=== PATIENT | female | born 1940 | race Caucasian/White ===

== ENCOUNTER 2017-05-06 10:17 | Emergency (ER) | payer BC, MEDICARE ==
[~2017-05-06] VITALS: Ht 154.9 cm; Wt 59.0 kg
[2017-05-06 10:19] VITALS: BP 159/74; PULSE 88; RESP 14; TEMP 97.8; O2SAT 96
[2017-05-06] MEDS ORDERED: SODIUM CHLOR 0.9% 1000 ML INJ 1,000 ML IV SCH (11:18)
[2017-05-06] MEDS ORDERED: PANT20TA2 PO (11:23)
[2017-05-06] MEDS ORDERED: LEVO125T50 PO (11:23)
[2017-05-06] MEDS ORDERED: ONDANSETRON HCL 4 MG/2 ML VIAL IVP ONE (11:30)
[2017-05-06] MEDS ORDERED: SODIUM CHLORIDE 0.9% FLUSH 10 ML FLUSH IV FLUSH PRN (11:30)
[2017-05-06] MEDS ORDERED: TRAZ1TAB14 PO (11:36)
[2017-05-06] MEDS ORDERED: ANTI-DEPRESSANT (11:36)
[2017-05-06] MEDS ORDERED: PLAQ200T PO (11:36)
--- NOTE | 2017-05-06 11:40 | PD ---
HPI Chief Complaint: GI Complaint Time Seen by Provider: 11:05 Travel History International Travel<30 days: No Contact w/Intl Traveler<30days: No Traveled to known affect area: No History of Present Illness HPI The patient has a 77-year-old female presenting to the emergency department with complaint of epigastric abdominal pain that does not radiate with gradual onset 1 week prior to arrival. The pain has been cramping. It is accompanied by nausea an vomiting with any intake of food. There has been hematemesis last night, no hematochezia, or melena of stool. There has been no urinary tract symptoms. Patient has been tolerating oral fluid intake. She states that last night the blood in her emesis appeared clumpy. She reports a history of constipation but states she had a normal bowel movement last night which was "sticky". Patient is not taking any blood thinners or aspirin. She states that she had a colonoscopy 3-4 years ago was told she had colitis. Patient denies sick contacts, her 's present and has been eating the same foods without any difficulty. Patient denies any cold or flulike symptoms. Past medical history significant for hypothyroidism, Raynaud's disease, depression, insomnia, GERD. PFSH Past Medical History Depression: Yes GERD: Yes Hypertension: Yes Insomnia: Yes Medical other: Yes (Raynaud's, colitis) Thyroid Disease: Yes Social History Alcohol Use: No Tobacco Use: No Substance Use: No Allergies-Medications (Allergen,Severity, Reaction): Coded Allergies: No Known Allergies (Unverified , 05/06/17) Reported Meds & Prescriptions Reported Meds & Active Scripts Active Reported [Anti-Depressant] Trazodone (Trazodone HCl) 150 Mg Tablet 150 Mg PO HS Plaquenil (Hydroxychloroquine Sulfate) 200 Mg Tab 200 Mg PO BID Take with food Levoxyl (Levothyroxine Sodium) 125 Mcg Tab 125 Mcg PO DAILY Pantoprazole (Pantoprazole Sodium) 20 Mg Tab 20 Mg PO DAILY Review of Systems Except as stated in HPI: all other systems reviewed are Neg General / Constitutional: No: Fever, Chills HENT: No: Headaches Cardiovascular: No: Chest Pain or Discomfort Respiratory: No: Shortness of Breath Gastrointestinal: Positive: Nausea, Vomiting, Abdominal Pain, Constipation, Indigestion Genitourinary: No: Dysuria Musculoskeletal: No: Myalgias Neurologic: No: Weakness, Dizziness, Focal Abnormalities Physical Exam Narrative GENERAL: Well developed, well nourished, alert elderly female. Presenting in no acute distress. SKIN: Warm and dry. HEAD: Atraumatic. Normocephalic. EYES: Pupils equal and round. No scleral icterus. No injection or drainage. ENT: No nasal bleeding or discharge. Mucous membranes pink and moist. NECK: Trachea midline. No JVD. CARDIOVASCULAR: Regular rate and rhythm. RESPIRATORY: No accessory muscle use. Clear to auscultation. Breath sounds equal bilaterally. GASTROINTESTINAL: Abdomen soft, mildly tender in epigastric region, nondistended. Hepatic and splenic margins not palpable. + bowel sounds, no rebound, no guarding. MUSCULOSKELETAL: Extremities without clubbing, cyanosis, or edema. No obvious deformities. NEUROLOGICAL: Awake and alert. No obvious cranial nerve deficits. Motor grossly within normal limits. Five out of 5 muscle strength in the arms and legs. Normal speech. PSYCHIATRIC: Appropriate mood and affect; insight and judgment normal. Data Data Last Documented VS Vital Signs Date Time Temp Pulse Resp B/P (MAP) Pulse Ox O2 Delivery O2 Flow Rate FiO2 05/06/17 10:19 97.8 88 14 159/74 (102) 96 Orders Orders Complete Blood Count With Diff (05/06/17 11:18) Comprehensive Metabolic Panel (05/06/17 11:18) Lipase (05/06/17 11:18) Prothrombin Time / Inr (Pt) (05/06/17 11:18) Act Partial Throm Time (Ptt) (05/06/17 11:18) Urinalysis - C+S If Indicated (05/06/17 11:18) Ct Abd/Pel W Iv Contrast(Rout) (05/06/17 11:18) Iv Access Insert/Monitor (05/06/17 11:18) Ecg Monitoring (05/06/17 11:18) Oximetry (05/06/17 11:18) NPO (05/06/17 11:18) Ondansetron Inj (Zofran Inj) (05/06/17 11:30) Sodium Chlor 0.9% 1000 Ml Inj (Ns 1000 M (05/06/17 11:18) Sodium Chloride 0.9% Flush (Ns Flush) (05/06/17 11:30) Iohexol 350 Inj (Omnipaque 350 Inj) (05/06/17 12:51) Pantoprazole Inj (Protonix Inj) (05/06/17 13:00) Labs Laboratory Tests Test 05/06/17 11:25 White Blood Count 7.3 TH/MM3 Red Blood Count 3.69 MIL/MM3 Hemoglobin 12.2 GM/DL Hematocrit 35.6 % Mean Corpuscular Volume 96.6 FL Mean Corpuscular Hemoglobin 33.2 PG Mean Corpuscular Hemoglobin Concent 34.4 % Red Cell Distribution Width 13.4 % Platelet Count 215 TH/MM3 Mean Platelet Volume 9.5 FL Neutrophils (%) (Auto) 76.4 % Lymphocytes (%) (Auto) 17.6 % Monocytes (%) (Auto) 4.3 % Eosinophils (%) (Auto) 1.0 % Basophils (%) (Auto) 0.7 % Neutrophils # (Auto) 5.6 TH/MM3 Lymphocytes # (Auto) 1.3 TH/MM3 Monocytes # (Auto) 0.3 TH/MM3 Eosinophils # (Auto) 0.1 TH/MM3 Basophils # (Auto) 0.1 TH/MM3 CBC Comment DIFF FINAL Differential Comment Prothrombin Time 10.0 SEC Prothromb Time International Ratio 1.0 RATIO Activated Partial Thromboplast Time 23.8 SEC Urine Color YELLOW Urine Turbidity CLEAR Urine pH 7.0 Urine Specific [place] 1.013 Urine Protein NEG mg/dL Urine Glucose (UA) NEG mg/dL Urine Ketones NEG mg/dL Urine Occult Blood NEG Urine Nitrite NEG Urine Bilirubin NEG Urine Urobilinogen LESS THAN 2.0 MG/DL Urine Leukocyte Esterase NEG Urine RBC 1 /hpf Urine WBC 2 /hpf Urine Squamous Epithelial Cells <1 /hpf Urine Bacteria FEW /hpf Urine Mucus FEW /lpf Microscopic Urinalysis Comment CULT NOT INDICATED Blood Urea Nitrogen 16 MG/DL Creatinine 0.87 MG/DL Random Glucose 91 MG/DL Total Protein 7.6 GM/DL Albumin 3.9 GM/DL Calcium Level 8.7 MG/DL Alkaline Phosphatase 65 U/L Aspartate Amino Transf (AST/SGOT) 15 U/L Alanine Aminotransferase (ALT/SGPT) 26 U/L Total Bilirubin 0.3 MG/DL Sodium Level 142 MEQ/L Potassium Level 3.9 MEQ/L Chloride Level 107 MEQ/L Carbon Dioxide Level 29.7 MEQ/L Anion Gap 5 MEQ/L Estimat Glomerular Filtration Rate 63 ML/MIN Lipase 144 U/L MDM Medical Decision Making Medical Screen Exam Complete: Yes Emergency Medical Condition: Yes Interpretation(s) Laboratory Tests Test 05/06/17 11:25 White Blood Count 7.3 TH/MM3 Red Blood Count 3.69 MIL/MM3 Hemoglobin 12.2 GM/DL Hematocrit 35.6 % Mean Corpuscular Volume 96.6 FL Mean Corpuscular Hemoglobin 33.2 PG Mean Corpuscular Hemoglobin Concent 34.4 % Red Cell Distribution Width 13.4 % Platelet Count 215 TH/MM3 Mean Platelet Volume 9.5 FL Neutrophils (%) (Auto) 76.4 % Lymphocytes (%) (Auto) 17.6 % Monocytes (%) (Auto) 4.3 % Eosinophils (%) (Auto) 1.0 % Basophils (%) (Auto) 0.7 % Neutrophils # (Auto) 5.6 TH/MM3 Lymphocytes # (Auto) 1.3 TH/MM3 Monocytes # (Auto) 0.3 TH/MM3 Eosinophils # (Auto) 0.1 TH/MM3 Basophils # (Auto) 0.1 TH/MM3 CBC Comment DIFF FINAL Differential Comment Prothrombin Time 10.0 SEC Prothromb Time International Ratio 1.0 RATIO Activated Partial Thromboplast Time 23.8 SEC Urine Color YELLOW Urine Turbidity CLEAR Urine pH 7.0 Urine Specific [place] 1.013 Urine Protein NEG mg/dL Urine Glucose (UA) NEG mg/dL Urine Ketones NEG mg/dL Urine Occult Blood NEG Urine Nitrite NEG Urine Bilirubin NEG Urine Urobilinogen LESS THAN 2.0 MG/DL Urine Leukocyte Esterase NEG Urine RBC 1 /hpf Urine WBC 2 /hpf Urine Squamous Epithelial Cells <1 /hpf Urine Bacteria FEW /hpf Urine Mucus FEW /lpf Microscopic Urinalysis Comment CULT NOT INDICATED Blood Urea Nitrogen 16 MG/DL Creatinine 0.87 MG/DL Random Glucose 91 MG/DL Total Protein 7.6 GM/DL Albumin 3.9 GM/DL Calcium Level 8.7 MG/DL Alkaline Phosphatase 65 U/L Aspartate Amino Transf (AST/SGOT) 15 U/L Alanine Aminotransferase (ALT/SGPT) 26 U/L Total Bilirubin 0.3 MG/DL Sodium Level 142 MEQ/L Potassium Level 3.9 MEQ/L Chloride Level 107 MEQ/L Carbon Dioxide Level 29.7 MEQ/L Anion Gap 5 MEQ/L Estimat Glomerular Filtration Rate 63 ML/MIN Lipase 144 U/L Vital Signs Date Time Temp Pulse Resp B/P (MAP) Pulse Ox O2 Delivery O2 Flow Rate FiO2 05/06/17 10:19 97.8 88 14 159/74 (102) 96 Differential Diagnosis Gastritis vs gastroenteritis vs obstruction vs cholecystitis vs metabolic abnormality vs colitis vs other Narrative Course Patient 77-year-old female that presented to emergency department for evaluation of nausea, vomiting, epigastric abdominal pain. Patient's vital signs are stable, she is well-appearing. Labs and imaging ordered and pending. IV access established and patient placed on teletypesetter monitor. IV fluids ordered. CBC with no acute findings identified, chemistry no acute findings. Urinalysis was unremarkable, coags with no acute findings. CT scan of the abdomen and pelvis which was read by the radiologist shows no acute findings. Patient was given dose of IV Protonix in the emergency department. Discussed findings with patient and her . Also discussed findings with the attending physician. Patient will be discharged home, will increase dose of Protonix to 40 mg daily. She is encouraged to maintain a bland, easy to digest diet, maintaining adequate oral intake of fluids. Patient has a GI doctor with which she can follow-up with. She was encouraged to call to schedule an appointment in the next few days. Patient will likely benefit from an upper endoscopy. Patient was given strict return precautions, she is reliable and verbalized understanding of discharge instructions. Patient is stable for discharge. Diagnosis Primary Impression: Non-intractable vomiting with nausea Qualified Codes: R11.2 - Nausea with vomiting, unspecified Additional Impression: Gastrointestinal symptoms Referrals: [facility] 2 days Call to schedule a follow-up appointment Primary Care Physician 2 days Patient Instructions: Acute Nausea and Vomiting (ED), Diet for Stomach Ulcers and Gastritis (ED), Gastritis (DC), General Instructions Additional Instructions: Follow-up with your solid waste engineer in 1-2 days Follow-up with her primary doctor Maintain a bland, easy to digest diet. Eat small meals. Maintain adequate oral fluid intake Return to emergency department immediately for any new or worsening symptoms as discussed Your home dose of Protonix was increased to 40 mg daily, a new prescription was written for you. Med/Other Pt SpecificInfo: Prescription(s) given Scripts Ondansetron Odt (Zofran Odt) 4 Mg Tab 4 MG SL Q6HR Y for Nausea/Vomiting, #15 TAB 0 Refills Prov: Carleen Nuñez 05/06/17 Pantoprazole (Protonix) 40 Mg Tab 40 MG PO DAILY for Reflux, #30 TAB 0 Refills Prov: Carleen Nuñez 05/06/17 Disposition: 01 DISCHARGE HOME Condition: Stable Carleen Nuñez May 06, 2017 11:39
[2017-05-06 11:51] LABS: BACTERIA, URINE FEW /hpf; BILIRUBIN, URINE NEG (NEG); BLOOD, URINE NEG (NEG); GLUCOSE,URINE NEG (NEG); KETONE, URINE NEG (NEG); MUCUS URINE FEW /lpf (OCC); NITRITE,URINE NEG (NEG); SQUAMOUS EPITHELIAL CELL URINE <1 /hpf (0-5); URINE COLOR YELLOW (YELLW/STRAW); URINE LEUKOCYTE ESTERASE NEG (NEG)
[2017-05-06 11:54] LABS: AUTOMATED NEUTROPHIL # 5.6 TH/MM3 (1.8-7.7); BASOPHIL # 0.1 TH/MM3 (0-0.2); BASOPHIL % 0.7 % (0.0-2.0); EOSINOPHIL # 0.1 TH/MM3 (0-0.4); HEMATOCRIT 35.6 % (35.0-46.0); HEMOGLOBIN 12.2 GM/DL (11.6-15.3); LYMPH % 17.6 % (9.0-44.0); LYMPHOCYTE # 1.3 TH/MM3 (1.0-4.8); MEAN CELL VOLUME 96.6 FL (80.0-100.0); MEAN CORPUSCULAR HEMOGLOBIN 33.2 PG (27.0-34.0); MEAN CORPUSCULAR HGB CONC 34.4 % (32.0-36.0); MEAN PLATELET VOLUME 9.5 FL (7.0-11.0); MONO % 4.3 % (0.0-8.0); MONOCYTE # 0.3 TH/MM3 (0-0.9); NEUT % 76.4 % (16.0-70.0); PLATELET COUNT 215 TH/MM3 (150-450); RED BLOOD COUNT 3.69 MIL/MM3 (4.00-5.30); RED CELL DISTRIBUTION WIDTH 13.4 % (11.6-17.2); WHITE BLOOD COUNT 7.3 TH/MM3 (4.0-11.0)
[2017-05-06 12:14] LABS: ALBUMIN 3.9 GM/DL (3.4-5.0); AST (GOT) 15 U/L (15-37); BICARBONATE 29.7 MEQ/L (21.0-32.0); BLOOD UREA NITROGEN 16 MG/DL (7-18); CALCIUM 8.7 MG/DL (8.5-10.1); CHLORIDE 107 MEQ/L (98-107); CREATININE 0.87 MG/DL (0.50-1.00); GLOMERULAR FILTRATION RATE 63 ML/MIN (>89); GLUCOSE,RANDOM 91 MG/DL (74-106); LIPASE 144 U/L (73-393); SODIUM (NA) 142 MEQ/L (136-145)
[2017-05-06 12:17] LABS: ALKALINE PHOSPHATASE 65 U/L (45-117); ALT (GPT) 26 U/L (10-53); TOTAL BILIRUBIN ADULT 0.3 MG/DL (0.2-1.0); TOTAL PROTEIN 7.6 GM/DL (6.4-8.2)
[2017-05-06] MEDS ORDERED: IOHEXOL 350 MG/ML 10 ML VIAL (for RAD DIAG) IVCONTRAST ONE (12:51)
--- NOTE | 2017-05-06 12:57 | RADRPT ---
EXAM DATE/TIME: 05/06/2017 12:27 [facility] COMPARISON: No previous studies available for comparison. INDICATIONS : Vomiting blood, epigastric pain. IV CONTRAST: 94 cc Omnipaque 350 (iohexol) IV ORAL CONTRAST: No oral contrast ingested. RADIATION DOSE: 6.72 CTDIvol (mGy) MEDICAL HISTORY : None SURGICAL HISTORY : None. ENCOUNTER: Initial ACUITY: 1 day PAIN SCALE: 3/10 LOCATION: Bilateral upper quadrant TECHNIQUE: Volumetric scanning of the abdomen and pelvis was performed. Using automated exposure control and ad justment of the mA and/or kV according to patient size, radiation dose was kept as low as reasonably achievable to obtain optimal diagnostic quality images. DICOM format image data is available electro nically for review and comparison. FINDINGS: LOWER LUNGS: The visualized lower lungs are clear. LIVER: Homogeneous density without lesion. There is no dilation of the biliary tree. No calcified gallston es. SPLEEN: Normal size without lesion. PANCREAS: Within normal limits. KIDNEYS: Normal in size and shape. There is no mass, stone or hydronephrosis. ADRENAL GLANDS: Within normal limits. VASCULAR: There is no aortic aneurysm. BOWEL/MESENTERY: The stomach, small bowel, and colon demonstrate no acute abnormality. There is no free intraperitone al air or fluid. ABDOMINAL WALL: Within normal limits. RETROPERITONEUM: There is no lymphadenopathy. BLADDER: No wall thickening or mass. REPRODUCTIVE: Within normal limits. INGUINAL: There is no lymphadenopathy or hernia. MUSCULOSKELETAL: Within normal limits for patient age. CONCLUSION: Normal examination. Charan De Oliveira MD on May 06, 2017 at 12:54 Board Certified Radiologist. This report was verified electronically.
[2017-05-06] MEDS ORDERED: PANTOPRAZOLE SODIUM 40 MG VIAL IV PUSH ONE (13:00)
--- NOTE | 2017-05-06 13:09 | PD ---
Physical Exam Date Seen by Provider: May 06, 2017 Time Seen by Provider: 11:30 Narrative I, Dr. Mckeon, have reviewed the advance practice practitioner's documentation and am in agreement, met with the patient face to face, made the diagnosis, and the medical decision making was done by me. *My assessment and Findings: Patient seen an evaluated with PA, please see PA note for further details. She, has been having abdominal pain, nausea vomiting , ends mildly tender to palpation in the upper abdomen. Laboratory Tests Test 05/06/17 11:25 Red Blood Count 3.69 MIL/MM3 (4.00-5.30) Neutrophils (%) (Auto) 76.4 % (16.0-70.0) Activated Partial Thromboplast Time 23.8 SEC (24.3-30.1) Urine Bacteria FEW /hpf (NONE) Urine Mucus FEW /lpf (OCC) Estimat Glomerular Filtration Rate 63 ML/MIN (>89) Last 24 hours Impressions Abdomen/Pelvis CT 05/06/17 1118 Signed Impressions: Service Date/Time: Saturday, May 06, 2017 12:27 - CONCLUSION: Normal examination. Charan De Oliveira MD Lab work and Scan as unremarkable.At this point, plan would be to release the patient with follow-up to primary care physician in GI. Return for worsening in symptoms as needed. The plan once discussed with her in she states understanding. Data Data Last Documented VS Vital Signs Date Time Temp Pulse Resp B/P (MAP) Pulse Ox O2 Delivery O2 Flow Rate FiO2 05/06/17 10:19 97.8 88 14 159/74 (102) 96 Orders Orders Complete Blood Count With Diff (05/06/17 11:18) Comprehensive Metabolic Panel (05/06/17 11:18) Lipase (05/06/17 11:18) Prothrombin Time / Inr (Pt) (05/06/17 11:18) Act Partial Throm Time (Ptt) (05/06/17 11:18) Urinalysis - C+S If Indicated (05/06/17 11:18) Ct Abd/Pel W Iv Contrast(Rout) (05/06/17 11:18) Iv Access Insert/Monitor (05/06/17 11:18) Ecg Monitoring (05/06/17 11:18) Oximetry (05/06/17 11:18) NPO (05/06/17 11:18) Ondansetron Inj (Zofran Inj) (05/06/17 11:30) Sodium Chlor 0.9% 1000 Ml Inj (Ns 1000 M (05/06/17 11:18) Sodium Chloride 0.9% Flush (Ns Flush) (05/06/17 11:30) Iohexol 350 Inj (Omnipaque 350 Inj) (05/06/17 12:51) Pantoprazole Inj (Protonix Inj) (05/06/17 13:00) Labs Laboratory Tests Test 05/06/17 11:25 White Blood Count 7.3 TH/MM3 Red Blood Count 3.69 MIL/MM3 Hemoglobin 12.2 GM/DL Hematocrit 35.6 % Mean Corpuscular Volume 96.6 FL Mean Corpuscular Hemoglobin 33.2 PG Mean Corpuscular Hemoglobin Concent 34.4 % Red Cell Distribution Width 13.4 % Platelet Count 215 TH/MM3 Mean Platelet Volume 9.5 FL Neutrophils (%) (Auto) 76.4 % Lymphocytes (%) (Auto) 17.6 % Monocytes (%) (Auto) 4.3 % Eosinophils (%) (Auto) 1.0 % Basophils (%) (Auto) 0.7 % Neutrophils # (Auto) 5.6 TH/MM3 Lymphocytes # (Auto) 1.3 TH/MM3 Monocytes # (Auto) 0.3 TH/MM3 Eosinophils # (Auto) 0.1 TH/MM3 Basophils # (Auto) 0.1 TH/MM3 CBC Comment DIFF FINAL Differential Comment Prothrombin Time 10.0 SEC Prothromb Time International Ratio 1.0 RATIO Activated Partial Thromboplast Time 23.8 SEC Urine Color YELLOW Urine Turbidity CLEAR Urine pH 7.0 Urine Specific [place] 1.013 Urine Protein NEG mg/dL Urine Glucose (UA) NEG mg/dL Urine Ketones NEG mg/dL Urine Occult Blood NEG Urine Nitrite NEG Urine Bilirubin NEG Urine Urobilinogen LESS THAN 2.0 MG/DL Urine Leukocyte Esterase NEG Urine RBC 1 /hpf Urine WBC 2 /hpf Urine Squamous Epithelial Cells <1 /hpf Urine Bacteria FEW /hpf Urine Mucus FEW /lpf Microscopic Urinalysis Comment CULT NOT INDICATED Blood Urea Nitrogen 16 MG/DL Creatinine 0.87 MG/DL Random Glucose 91 MG/DL Total Protein 7.6 GM/DL Albumin 3.9 GM/DL Calcium Level 8.7 MG/DL Alkaline Phosphatase 65 U/L Aspartate Amino Transf (AST/SGOT) 15 U/L Alanine Aminotransferase (ALT/SGPT) 26 U/L Total Bilirubin 0.3 MG/DL Sodium Level 142 MEQ/L Potassium Level 3.9 MEQ/L Chloride Level 107 MEQ/L Carbon Dioxide Level 29.7 MEQ/L Anion Gap 5 MEQ/L Estimat Glomerular Filtration Rate 63 ML/MIN Lipase 144 U/L MDM Medical Record Reviewed: Yes Supervised Visit with PRAKASH: Yes Diagnosis Primary Impression: Abdominal pain Disposition: DISCHARGE HOME Condition: Stable Concepción Mckeon MD May 06, 2017 13:09
[2017-05-06] MEDS ORDERED: PROT40TA PO (13:15)
[2017-05-06] MEDS ORDERED: ZOFR4TAB3 SL (13:15)
== END 2017-05-06 13:27 | disposition home or self-care (01) ==
LOC: NEPC 10:17
DX: R11.2 Nausea with vomiting, unspecified (principal); F32.9 Major depressive disorder, single episode, unspecified; K21.9 Gastro-esophageal reflux disease without esophagitis; I10 Essential (primary) hypertension; G47.00 Insomnia, unspecified; I73.00 Raynaud's syndrome without gangrene; R10.13 Epigastric pain
CPT/HCPCS: 74177; 80053; 81001; 83690; 85025; 85610; 85730; 96374; 96375; 99285; C9113; J2405; J7030; Q9967